=== PATIENT | male | born 1945 | race Caucasian/White ===

== ENCOUNTER → 2016-12-07 | Outpatient (CLI) | payer OTHER, BC ==
[~2016-12-07] MED LIST: ASPEC325 PO; ASPI81TA28 PO; ATOR10TA88 PO; AZEL30SP NAE; CIPR-255 PO; CRD4 PO; FLUT0.15 NAE; FRRG PO; GLUC250C PO; LPT/40 PO; MULT-506 PO; NAPR1TAB9 PO; NEBI10TA2 PO; OMEG10007 PO; TART CHERRY JUICE PO; VGR50 PO
[2016-12-07 13:18] LABS: HEMATOCRIT 39.8 % (42-52); MEAN CELL VOLUME 97.3 fL (80-100); MEAN CORPUSCULAR HEMOGLOBIN 33.5 pg (25-34); MEAN CORPUSCULAR HGB CONC 34.4 g/dl (32-36); MEAN PLATELET VOLUME 10.8 fL (7.4-10.4); PLATELET COUNT 168 K/uL (130-400); RED BLOOD COUNT 4.09 M/uL (4.7-6.1); WHITE BLOOD COUNT 4.26 K/uL (4.8-10.8)
[2016-12-07 13:51] LABS: ALT/SGPT 54 U/L (12-78); AST/SGOT 22 U/L (15-37); BLOOD UREA NITROGEN 22 mg/dl (7-18); BUN/CREATININE RATIO 24.3 (10-20); CALCIUM 8.4 mg/dl (8.5-10.1); CARBON DIOXIDE 27 mmol/L (21-32); CHLORIDE 110 mmol/L (98-107); CHOLESTEROL 126 mg/dl (0-200); CREATININE 0.92 mg/dl (0.60-1.40); GLUCOSE 104 mg/dl (70-99); POTASSIUM 4.3 mmol/L (3.5-5.1); SODIUM 143 mmol/L (136-145)
[2016-12-07 13:54] LABS: ALB/GLOB RATIO 1.5 (0.9-2); ALKALINE PHOSPHATASE 67 U/L (45-117); CHOLESTEROL/HDL RATIO 2.6; HDL CHOLESTEROL 49 mg/dl; LDL CHOLESTEROL CALCULATED 57 mg/dl; TRIGLYCERIDES 99 mg/dl (0-150); VERY LOW DENSITY LIPOPROT CALC 20 mg/dl
== END | disposition home or self-care (01) ==
LOC: C.LABBC 10:23
PROVIDERS: ATTEND Family Medicine
DX: D64.9 Anemia, unspecified (principal); I10 Essential (primary) hypertension; Z11.59 Encounter for screening for other viral diseases; E78.5 Hyperlipidemia, unspecified

== ENCOUNTER → 2016-12-31 | Outpatient (CLI) | payer OTHER, BC ==
[~2016-12-31] MED LIST changes: +ATOR10TA82 PO; -ATOR10TA88 PO
== END | disposition home or self-care (01) ==
LOC: C.LABBC 11:05
PROVIDERS: ATTEND Urology
DX: R31.0 Gross hematuria (principal)

== ENCOUNTER 2017-01-01 14:12 | Emergency (ER) | payer OTHER, BC ==
[~2017-01-01] VITALS: Ht 188 cm; Wt 101.7 kg
[~2017-01-01 14:12] MED LIST changes: -ASPI81TA28 PO; -CIPR-255 PO; -LPT/40 PO; -VGR50 PO
[2017-01-01 14:17] VITALS: TEMP 36.6; Ht 188 cm; Wt 101.7 kg
[2017-01-01] MEDS ORDERED: LPT/40 PO (14:56)
[2017-01-01] MEDS ORDERED: ASPI81TA28 PO (14:56)
--- NOTE | 2017-01-01 14:56 | EMERGENCY ROOM VISIT NOTE ---
History Report prepared by Divya: Alen Pack Under the Supervision of: Dr. Halle Burrell D.O. First contact with patient: 14:26 Chief Complaint: URINARY SYMPTOMS Stated Complaint: REFERRED BY UROLOGIST, URINARY SYMPTOMS Nursing Triage Summary: Pt states long history of prostate problems, transuretheral resection of prostate 20 years ago. 3 days ago began having "prostate pain", 3/10 during day, 7/10 at night. Hematuria, blood clots in urine increasing over the last month. Increased incontinence. Feels like he's emptying his bladder, but continues to dribble a little after. History of Present Illness The patient is a 71 year old male who presents to the Emergency Room, with referral from urologist, for worsening urinary symptoms that started CAR GREASER. These symptoms include worsening gross hematuria, worsening incontinence, "dribbling" after urination, and pain behind the scrotum that the patient rates as a 3/10 during the day and a 7/10 at night. This pain is worse with lying down. It intermittently radiates to the lower back. It worsened 3 days ago after passing a blood clot 3 quarters of an inch in length. Patient mentions that he had a negative urinalysis performed 3 days ago. The patient has a long history of prostate problems that includes recurrent prostatitis, frequent gross hematuria , a transurethral resection of the prostate 20 years ago. He adds that his frequent hematuria is often related to sexual activity. The patient has a scheduled cystoscopy on January [address] Morales (Urology). The patient takes Aleve and Aspirin daily as prescribed. He denies fevers, chills, nausea, vomiting, diarrhea, testicular pain or swelling, or any additional associated symptoms. Patient denies a history of kidney infections. Source of History: patient Onset: CAR GREASER Position: other (Urinary System ) Timing: worsening Modifying Factors (Worsening): other (Lying down) Associated Symptoms: No chills, No diarrhea, No fevers, No nausea, No vomiting Note: Symptoms include hematuria, dribbling after urination, incontinence, and pain. Review of Systems Pt denies headache, change in vision, fevers, chest pain, shortness of breath, nausea, vomiting, diarrhea, pain with urination, and melena. Past Medical & Surgical Medical Problems: (1) Right Knee djd Surgical Problems: (1) H/O transurethral resection of prostate Family History No pertinent family history Social History Smoking Status: Former Smoker Alcohol Use: occasionally Drug Use: none Marital Status: Housing Status: lives with significant other Current/Historical Medications Scheduled Aspirin (Aspirin Ec), 81 MG PO HS Atorvastatin (Lipitor), 40 MG PO QAM Azelastine Hcl-Fluticasone Pro (Dymista), 2 SPRY CARLOS BID Ciprofloxacin Hcl (Cipro), 500 MG PO BID Doxazosin Mesylate (Doxazosin Mesylate), 4 MG PO QPM Fish Oil ([place]-3), 2 CAP PO QAM Fluticasone Propionate (Nasal) (Flonase Allergy Relief), 1 SPRAYS CARLOS BID Multivitamin (Multivitamin), 1 TAB PO QAM Nebivolol Hcl (Bystolic), 5 MG PO QPM Scheduled PRN Naproxen (Aleve), 220 MG PO Q12 PRN for Pain Allergies Coded Allergies: Cetirizine (Verified Allergy, Unknown, AFFECTS PROSTATE, 01/01/17) Physical Exam Vital Signs Date Time Temp Pulse Resp B/P Pulse Ox O2 Delivery O2 Flow Rate FiO2 01/01/17 18:21 66 17 128/85 97 01/01/17 16:28 66 16 122/75 95 01/01/17 14:17 36.6 89 17 128/82 97 Room Air Physical Exam GENERAL: alert, well appearing, well nourished, no distress, non-toxic EYE EXAM: normal conjunctiva, PERRL and EOM's grossly intact OROPHARYNX: no exudate, no erythema, lips, buccal mucosa, and tongue normal and mucous membranes are moist NECK: supple, no nuchal rigidity, no adenopathy, non-tender LUNGS: Clear to auscultation. Normal chest wall mechanics HEART: no murmurs, S1 normal and S2 normal ABDOMEN: abdomen soft, non-tender, normo-active bowel sounds, no masses, no rebound or guarding. : Normal external circumcised male genitalia. Bilateral, nontender, descended testicles. No scrotal edema or tenderness. No penile discharge. BACK: Back is symmetrical on inspection and there is no deformity, no midline tenderness, no CVA tenderness. SKIN: no rashes and no bruising UPPER EXTREMITIES: upper extremities are grossly normal. LOWER EXTREMITIES: No pitting edema. NEURO EXAM: Normal sensorium, no gross weakness. Medical Decision & Procedures ER Provider Diagnostic Interpretation: CT results have been interpreted by the radiologist and reviewed by me. ABDOMEN AND PELVIS CT WITH IV CONTRAST CT DOSE: 572.70 mGy.cm HISTORY: pelvic pain/? prostatitis TECHNIQUE: Multiaxial CT images of the abdomen and pelvis were performed following the use of intravenous contrast. COMPARISON STUDY: None. FINDINGS: Minimal basilar platelike atelectasis. Liver spleen and pancreas are unremarkable. Kidneys negative for hydronephrosis. Bowel pattern is nonobstructive. There is atherosclerotic change and ectasia of the abdominal aorta. Prostate is midline. There is no significant periprosthetic infiltrative change. There is no evidence for abscess collection or obstruction. IMPRESSION: No acute process. Electronically signed by: Nitesh Quiroga M.D. 01/01/2017 5:08 PM Dictated Date/Time: 01/01/2017 5:02 PM Laboratory Results 01/01/17 15:00 Red Blood Count 3.96, Mean Corpuscular Volume 96.2, Mean Corpuscular Hemoglobin 33.8, Mean Corpuscular Hemoglobin Concent 35.2, Mean Platelet Volume 10.1, Neutrophils (%) (Auto) 57.7, Lymphocytes (%) (Auto) 30.0, Monocytes (%) (Auto) 7.3, Eosinophils (%) (Auto) 3.6, Basophils (%) (Auto) 0.7, Neutrophils # (Auto) 2.54, Lymphocytes # (Auto) 1.32, Monocytes # (Auto) 0.32, Eosinophils # (Auto) 0.16, Basophils # (Auto) 0.03 01/01/17 15:00 Test 01/01/17 15:00 01/01/17 15:18 White Blood Count 4.40 K/uL (4.8-10.8) Red Blood Count 3.96 M/uL (4.7-6.1) Hemoglobin 13.4 g/dL (14.0-18.0) Hematocrit 38.1 % (42-52) Mean Corpuscular Volume 96.2 fL (80-100) Mean Corpuscular Hemoglobin 33.8 pg (25-34) Mean Corpuscular Hemoglobin Concent 35.2 g/dl (32-36) Platelet Count 168 K/uL (130-400) Mean Platelet Volume 10.1 fL (7.4-10.4) Neutrophils (%) (Auto) 57.7 % Lymphocytes (%) (Auto) 30.0 % Monocytes (%) (Auto) 7.3 % Eosinophils (%) (Auto) 3.6 % Basophils (%) (Auto) 0.7 % Neutrophils # (Auto) 2.54 K/uL (1.4-6.5) Lymphocytes # (Auto) 1.32 K/uL (1.2-3.4) Monocytes # (Auto) 0.32 K/uL (0.11-0.59) Eosinophils # (Auto) 0.16 K/uL (0-0.5) Basophils # (Auto) 0.03 K/uL (0-0.2) RDW Standard Deviation 48.0 fL (36.4-46.3) RDW Coefficient of Variation 13.8 % (11.5-14.5) Immature Granulocyte % (Auto) 0.7 % Immature Granulocyte # (Auto) 0.03 K/uL (0.00-0.02) Anion Gap 8.0 mmol/L (3-11) Est Creatinine Clear Calc Drug Dose 92.8 ml/min Estimated GFR () 95.4 Estimated GFR (Non- 82.3 BUN/Creatinine Ratio 27.4 (10-20) Calcium Level 8.7 mg/dl (8.5-10.1) Urine Color YELLOW Urine Appearance CLEAR (CLEAR) Urine pH 6.0 (4.5-7.5) Urine Specific Lamar 1.016 (1.000-1.030) Urine Protein NEG (NEG) Urine Glucose (UA) NEG (NEG) Urine Ketones NEG (NEG) Urine Occult Blood NEG (NEG) Urine Nitrite NEG (NEG) Urine Bilirubin NEG (NEG) Urine Urobilinogen NEG (NEG) Urine Leukocyte Esterase NEG (NEG) Date/Time Source Procedure Growth Status 01/01/17 15:18 Urine , Clean Catch Urine Culture - Final NO GROWTH - LESS THAN 1,000 COLONIES/ML Complete Laboratory results per my review. Medications Administered Medications (Trade) Dose Ordered Sig/Jd Route Start Time Stop Time Status Last Admin Dose Admin Ciprofloxacin (Cipro Tab) 500 mg NOW STAT PO 01/01/17 17:30 01/01/17 17:32 DC 01/01/17 18:14 500 MG ED Course 1430: The patient was evaluated in room B7. A complete history and physical exam was performed. 1712: I updated the patient on the results thus far. We discussed the current treatment plan. He is agreeable at this time. 1725: I discussed the patient's case with Dr. Mckeon (Urology). He recommends the patient follow up as an outpatient. 1730: Ordered Ciprofloxacin 500 mg PO. 1750: Pt updated on conversation with urology. 1743: Upon reevaluation, the patient is feeling better. I discussed the findings and the treatment plan with the patient and his . They verbalized agreement and understanding. He was discharged home. Medical Decision Differential diagnosis include but are not limited to: UTI, kidney stone, acute renal failure, trauma, prostatitis. Pt well appearing here. No difficulty urinating and no hematuria. Pain well controlled. VS stable. CT and labs reassuring. Discussed with urology. Pt covered with antibiotics for probable prostatitis given hx. No other med changes. Doubt UTI/pyelo, no evidence of stone, abscess, doubt additional Gi pathology. Questions answered at bedside. Pt agreeable with plan, discussed sx to watch/return for. Consults Time Called: 171 Consulting Physician: Dr. Mckeon (Urology) Returned Call: [phone] I discussed the patient's case with Dr. Mckeon (Urology). He recommends the patient follow up in the outpatient office. Impression Primary Impression: Prostatitis Scribe Attestation The scribe's documentation has been prepared under my direction and personally reviewed by me in its entirety. I confirm that the note above accurately reflects all work, treatment, procedures, and medical decision making performed by me. Departure Information Dispostion Home / Self-Care Prescriptions Ciprofloxacin Hcl (CIPRO) 500 Mg Tab 500 MG PO BID for 28 Days, #56 TAB Prov: Halle Burrell, 01/01/17 Referrals Gilmer Joel D.O.Int.Med. (PCP) Forms HOME CARE DOCUMENTATION FORM, IMPORTANT VISIT INFORMATION Patient Instructions My [facility] Additional Instructions Please take the antibiotics as prescribed. Please continue your regular medications. Please eat and drink normally. Continue to monitor for any further blood or clots in your urine. If you have any increased pain, develop fevers, vomiting, back pain, are unable to urinate, notice a change in your stools, or you have any other new or concerning symptoms, please return to the emergency room. Problem Qualifiers Primary Impression: Prostatitis Prostatitis type: acute Qualified Codes: N41.0 - Acute prostatitis
[2017-01-01 15:16] LABS: BASO % 0.7 %; BASO ABS # 0.03 K/uL (0-0.2); COMPLETE YES; EOS % 3.6 %; HEMATOCRIT 38.1 % (42-52); IG% 0.7 %; LYMPH ABS # 1.32 K/uL (1.2-3.4); MEAN CELL VOLUME 96.2 fL (80-100); MEAN CORPUSCULAR HEMOGLOBIN 33.8 pg (25-34); MEAN CORPUSCULAR HGB CONC 35.2 g/dl (32-36); MEAN PLATELET VOLUME 10.1 fL (7.4-10.4); MONO % 7.3 %; NEUT % 57.7 %; PLATELET COUNT 168 K/uL (130-400); RED BLOOD COUNT 3.96 M/uL (4.7-6.1)
[2017-01-01 15:29] LABS: URINE APPEARANCE CLEAR (CLEAR); URINE BILIRUBIN NEG (NEG); URINE COLOR YELLOW; URINE NITRITE NEG (NEG); URINE SPECIFIC GRAVITY 1.016 (1.000-1.030); UROBILINOGEN NEG (NEG); ZZUR CULT IF INDIC CLEAN CATCH NO
[2017-01-01] MEDS ORDERED: OPTIRAY 320 IV PRN (15:30)
[2017-01-01 15:31] LABS: MANUAL MICROSCOPIC REQUIRED? NO; REVIEW REQ? NO
[2017-01-01 15:47] LABS: BUN/CREATININE RATIO 27.4 (10-20); CALCIUM 8.7 mg/dl (8.5-10.1); CREATININE 0.93 mg/dl (0.60-1.40); POTASSIUM 4.2 mmol/L (3.5-5.1)
--- NOTE | 2017-01-01 17:11 | DIAGNOSTIC IMAGING REPORT ---
ABDOMEN AND PELVIS CT WITH IV CONTRAST CT DOSE: 572.70 mGy.cm HISTORY: pelvic pain/? prostatitis TECHNIQUE: Multiaxial CT images of the abdomen and pelvis were performed following the use of intravenous contrast. COMPARISON STUDY: None. FINDINGS: Minimal basilar platelike atelectasis. Liver spleen and pancreas are unremarkable. Kidneys negative for hydronephrosis. Bowel pattern is nonobstructive. There is atherosclerotic change and ectasia of the abdominal aorta. Prostate is midline. There is no significant periprosthetic infiltrative change. There is no evidence for abscess collection or obstruction. IMPRESSION: No acute process. Electronically signed by: Nitesh Quiroga M.D. 01/01/2017 5:08 PM Dictated Date/Time: 01/01/2017 5:02 PM
[2017-01-01] MEDS ORDERED: CIPROFLOXACIN 500 MG TAB PO STA (17:30)
[2017-01-01] MEDS ORDERED: CIPR-255 PO (17:59)
[2017-01-01 18:21] VITALS: BP 128/85; PULSE 66; O2SAT 97
[2017-02-17] MEDS ORDERED: NAPR1TAB9 PO (12:05)
[2017-02-17] MEDS ORDERED: VGR50 PO (12:05)
[2017-03-02] MEDS ORDERED: CIPR-255 PO (10:26)
== END 2017-01-01 18:23 | disposition home or self-care (01) ==
LOC: C.EDB 14:13
DX: N41.9 Inflammatory disease of prostate, unspecified (principal); Z98.890 Other specified postprocedural states; Z87.891 Personal history of nicotine dependence; Z79.82 Long term (current) use of aspirin; Z79.899 Other long term (current) drug therapy; Z88.8 Allergy status to other drugs, medicaments and biological substances

== ENCOUNTER 2017-03-02 08:49 | Day surgery (SDC) | payer OTHER, BC ==
[2017-02-17 12:06] VITALS: BMI 28.0
--- NOTE | 2017-02-17 12:45 | PAT Medication Instructions ---
Service Date Feb 17, 2017. Current Home Medication List Aspirin (Aspirin Ec), 81 MG PO HS Atorvastatin (Lipitor), 40 MG PO QAM Azelastine Hcl-Fluticasone Pro (Dymista), 2 SPRY CARLOS BID Doxazosin Mesylate (Doxazosin Mesylate), 4 MG PO QPM Fish Oil ([place]-3), 2 CAP PO QAM Fluticasone Propionate (Nasal) (Flonase Allergy Relief), 1 SPRAYS CARLOS BID Multivitamin (Multivitamin), 1 TAB PO QAM Naproxen (Aleve), 440 MG PO PRN Nebivolol Hcl (Bystolic), 5 MG PO QPM Sildenafil Citrate (Viagra), 50 MG PO PRN Medication Instructions For Your Scheduled Surgery - Check with surgeon for instructions: Aspirin (Aspirin Ec), 81 MG PO HS Naproxen (Aleve), 440 MG PO PRN - Hold the following medications starting 02/18/17 prior to surgery: Fish Oil ([place]-3), 2 CAP PO QAM - Hold the following medications the morning of surgery: Sildenafil Citrate (Viagra), 50 MG PO PRN Multivitamin (Multivitamin), 1 TAB PO QAM - Take the following medications the morning of surgery with a sip of water: Fluticasone Propionate (Nasal) (Flonase Allergy Relief), 1 SPRAYS CARLOS BID Azelastine Hcl-Fluticasone Pro (Dymista), 2 SPRY CARLOS BID Atorvastatin (Lipitor), 40 MG PO QAM - Take the following medications as scheduled the night before surgery: Sildenafil Citrate (Viagra), 50 MG PO PRN Nebivolol Hcl (Bystolic), 5 MG PO QPM Fluticasone Propionate (Nasal) (Flonase Allergy Relief), 1 SPRAYS CARLOS BID Doxazosin Mesylate (Doxazosin Mesylate), 4 MG PO QPM Azelastine Hcl-Fluticasone Pro (Dymista), 2 SPRY CARLOS BID If you have any questions please call us at [phone] or [phone] or [phone]
--- NOTE | 2017-02-17 13:08 | DIAGNOSTIC IMAGING REPORT ---
CHEST 2 VIEWS ROUTINE CLINICAL HISTORY: Preoperative chest COMPARISON STUDY: 01/14/2016 FINDINGS: The cardiac and mediastinal contours are normal. There is no evidence of focal pulmonary consolidation. There is no evidence of failure. No pleural effusions are visualized.[ There is minimal linear atelectasis/scarring at the lung bases. IMPRESSION: No active disease in the chest. Electronically signed by: Boni Burciaga M.D. 02/17/2017 1:07 PM Dictated Date/Time: 02/17/2017 1:07 PM
[2017-02-17 13:27] LABS: BASO % 0.7 %; BASO ABS # 0.03 K/uL (0-0.2); COMPLETE YES; EOS % 3.5 %; IG% 0.9 %; LYMPH % 28.2 %; LYMPH ABS # 1.22 K/uL (1.2-3.4); MEAN CELL VOLUME 96.4 fL (80-100); MEAN CORPUSCULAR HEMOGLOBIN 32.8 pg (25-34); MEAN CORPUSCULAR HGB CONC 34.1 g/dl (32-36); MEAN PLATELET VOLUME 10.8 fL (7.4-10.4); MONO % 7.2 %; NEUT % 59.5 %; PLATELET COUNT 167 K/uL (130-400); RED BLOOD COUNT 3.84 M/uL (4.7-6.1); WHITE BLOOD COUNT 4.33 K/uL (4.8-10.8)
[2017-02-17 13:28] LABS: URINE APPEARANCE CLEAR (CLEAR); URINE BILIRUBIN NEG (NEG); URINE COLOR YELLOW; URINE NITRITE NEG (NEG); URINE SPECIFIC GRAVITY 1.012 (1.000-1.030); UROBILINOGEN NEG (NEG)
[2017-02-17 13:32] LABS: MANUAL MICROSCOPIC REQUIRED? NO; REVIEW REQ? NO
[2017-02-17 14:34] LABS: BUN/CREATININE RATIO 23.9 (10-20); CALCIUM 8.7 mg/dl (8.5-10.1); CREATININE 0.8 mg/dl (0.60-1.40); POTASSIUM 4.4 mmol/L (3.5-5.1)
[~2017-03-02] VITALS: Ht 188 cm; Wt 99.5 kg
[~2017-03-02 08:49] MED LIST changes: -ASPEC325 PO; +ASPI81TA28 PO; -ATOR10TA82 PO; +ATROPINE SULFATE 0.1 MG/ML 5ML SYR IV PRN; +CIPROFLOXACIN / D5W 400 MG IV SCH; +EpHEDrine SULFATE INJ 50 MG/ML AMP IV PRN; +FENTANYL CITRATE INJ 50 MCG/1 ML 2 ML VIAL IV PRN; +FENTANYL CITRATE INJ 50 MCG/1 ML 2 ML VIAL ONE; -FRRG PO; -GLUC250C PO; +HYDROmorphone INJ 1 MG/ML SYR IV PRN; +LACTATED RINGER'S 1000ML 1,000 ML IV SCH; +LPT/40 PO; +ONDANSETRON INJ 2 MG/ML 2 ML VIAL IV PRN; -TART CHERRY JUICE PO; +VGR50 PO
[2017-03-02 09:07] VITALS: BP 119/74; PULSE 69; TEMP 36.8; O2SAT 95; Ht 188 cm; Wt 99.5 kg
--- NOTE | 2017-03-02 09:11 | History & Physical Bridge Note ---
H&P Re-Evaluation Bridge Note: I have examined the patient, reviewed the History & Physical and in the interval since the performance of the History & Physical I have noted the following changes of clinical significance: No changes noted
[2017-03-02] MEDS ORDERED: ONDANSETRON INJ 2 MG/ML 2 ML VIAL ONE (09:56)
[2017-03-02] MEDS ORDERED: DEXAMETHASONE SOD INJ 4 MG/ML VIAL ONE (09:56)
[2017-03-02] MEDS ORDERED: PROPOFOL IV EMULSION 10 MG/ML 20 ML VIAL IV ONE (09:56)
[2017-03-02] MEDS ORDERED: LIDOCAINE HCL 2% 2 ML VIAL (20MG/ML) ONE (09:56)
[2017-03-02] MEDS ORDERED: EpHEDrine SULFATE 50MG/5ML SYR ONE (09:58)
[2017-03-02] MEDS ORDERED: SODIUM CHLORIDE 0.9% 1000ML 1,000 ML IV SCH (10:24)
--- NOTE | 2017-03-02 10:24 | [facility] Post Operative Brief Note ---
Immediate Operative Summary Operative Date Mar 02, 2017. Pre-Operative Diagnosis BENIGN PROSTATE HYPERTROPHY Post-Operative Diagnosis SAME Procedure(s) Performed Transurethral Resection Prostate Surgeon Dr. Nishant Morales [employer] Cook Surgeon(s) none Estimated Blood Loss 0 ml Findings Lateral lobe regrowth of the prostate. Resected and opened nicely. Widely patent prostatic urethra at the conclusion of the case. Specimens none per surgeon Drains 22F ruiz Anesthesia Gen Complication(s) None Disposition Recovery Room / PACU (stable)
[2017-03-02] MEDS ORDERED: CIPR-255 PO (10:26)
--- NOTE | 2017-03-02 10:27 | Discharge Instructions ---
Discharge Instructions Date of Service Mar 02, 2017. Admission Reason for Admission: Benign Prostatic Hypertrophy Discharge Discharge Diagnosis / Problem: BPH Discharge Goals Goal(s): Decrease discomfort, Improve function, Increase independence, Improve disease control, Prevent Disease Progression Activity Recommendations Activity Limitations: resume your previous activity Lifting Limitations: none Exercise/Sports Limitations: none May Resume Sexual Activity: when tolerated Shower/Bathe: no limitations Driving or Machine Use: resume 1 day after discharge . Instructions / Follow-Up Instructions / Follow-Up Please come to Dr. Morales's office tomorrow morning to have your catheter removed Discharge Diet Recommended Diet: Regular Diet Procedures Procedures Performed: Transurethral Resection Prostate Pending Studies Studies pending at discharge: no Laboratory Results Lipid Panel Test 12/07/16 10:26 Range/Units Triglycerides Level 99 0-150 mg/dl Cholesterol Level 126 0-200 mg/dl HDL Cholesterol 49 mg/dl Cholesterol/HDL Ratio 2.6 LDL Cholesterol, Calculated 57 mg/dl Medical Emergencies . Who to Call and When: Medical Emergencies: If at any time you feel your situation is an emergency, please call 911 immediately. . Non-Emergent Contact Non-Emergency issues call your: Urologist Call Non-Emergent contact if: you have a fever, temperature is above 101.5, your pain is not controlled, your pain is worsening . . "Provider Documentation" section prepared by Fede Fox. . VTE Core Measure Inpt VTE Proph given/why not?: Treatment not indicated
[2017-03-02] MEDS ORDERED: ACETAMINOPHEN 325 MG TAB PO PRN (10:30)
[2017-03-02] MEDS ORDERED: HYDROCODONE/ACETAMOPHEN 5/325MG TAB PO PRN ×2 (10:30)
--- NOTE | 2017-03-02 11:02 | OPERATIVE REPORT ---
DATE OF OPERATION: 03/02/2017 PREOPERATIVE DIAGNOSIS: Benign prostatic hypertrophy. POSTOPERATIVE DIAGNOSIS: Benign prostatic hypertrophy. PROCEDURE PERFORMED: Transurethral resection of prostate. ANESTHESIA: General. ESTIMATED BLOOD LOSS: 0. URINE OUTPUT: Not recorded. SPECIMENS: There were no specimens. DRAINS: A 22-Samoan Carreno catheter. DESCRIPTION OF THE PROCEDURE: Jose Cordoba was identified in the preoperative holding area. Appropriate informed consents were reviewed and completed and the patient was transported to the operating suite. Upon arrival, he received appropriate preoperative antibiotics in the form of ciprofloxacin. Adequate general anesthesia was achieved, the patient was placed in dorsal lithotomy position, where he was sterilely prepped and draped in standard fashion. I began the case by passing a 24-Samoan resectoscope with 30 degree lens and visual obturator. Inspection revealed no evidence of stricture disease. Prostate had lateral lobe regrowth and notable obstruction. Full inspection of the bladder was carried out, noting a moderately trabeculated bladder with ureteral orifices in orthotopic position and no evidence of bladder tumors. Of note, the patient had a TURP approximately 20+ years ago and has had a very good result; however, he has had increasing problems recently and has a notable regrowth of the prostate. After this full inspection, I passed a button electrode and vaporized the lateral lobes beginning with the left ultimately followed by the right. This opened the prostatic urethra extremely well and there was excellent hemostasis throughout the resection. To conclude the case, I left the bladder full and I withdrew the scope. I then placed a 22-Samoan catheter without difficulty. The patient was extubated and taken to the PACU in stable condition. I attest to the content of the Intraoperative Record and any orders documented therein. Any exception s are noted below.
--- NOTE | 2017-03-02 11:03 | Anesthesiology Progress Note ---
Anesthesia Post Op Note Date & Time Mar 02, 2017 at 11:02 Vital Signs Pain Intensity: 0 Vital Signs Past 12 Hours Date Time Temp Pulse Resp B/P (MAP) Pulse Ox O2 Delivery O2 Flow Rate FiO2 03/02/17 10:46 106/65 03/02/17 10:45 77 17 96 03/02/17 10:45 68 17 03/02/17 10:41 111/69 03/02/17 10:40 69 25 03/02/17 10:40 68 25 98 03/02/17 10:36 110/59 03/02/17 10:35 68 15 03/02/17 10:35 68 15 98 03/02/17 10:31 104/65 03/02/17 10:30 75 14 03/02/17 10:30 73 14 03/02/17 10:27 108/64 03/02/17 10:25 36.2 77 18 108/64 98 Mask 10 03/02/17 09:07 36.8 69 18 119/74 (89) 95 Room Air Notes Mental Status: alert / awake / arousable, participated in evaluation Pt Amnestic to Procedure: Yes Nausea / Vomiting: adequately controlled Pain: adequately controlled Airway Patency, RR, SpO2: stable & adequate BP & HR: stable & adequate Hydration State: stable & adequate Anesthetic Complications: no major complications apparent
[2017-03-02 11:10] VITALS: BP 116/66; PULSE 72; TEMP 36.6; O2SAT 93
[2017-03-02 11:40] VITALS: BP 109/68; PULSE 69; TEMP 36.6; O2SAT 95
[2017-03-02 12:10] VITALS: BP 116/74; PULSE 71; TEMP 36.6; O2SAT 95
== END 2017-03-02 12:19 | disposition home or self-care (01) ==
LOC: C.ACU 08:49
PROVIDERS: ATTEND Urology
DX: N40.0 Benign prostatic hyperplasia without lower urinary tract symptoms (principal); I10 Essential (primary) hypertension; E78.5 Hyperlipidemia, unspecified; I25.10 Atherosclerotic heart disease of native coronary artery without angina pectoris; G47.33 Obstructive sleep apnea (adult) (pediatric); Z96.653 Presence of artificial knee joint, bilateral; Z98.41 Cataract extraction status, right eye; Z98.42 Cataract extraction status, left eye; Z98.890 Other specified postprocedural states; M19.90 Unspecified osteoarthritis, unspecified site; Z85.828 Personal history of other malignant neoplasm of skin; Z68.28 Body mass index [BMI] 28.0-28.9, adult

== ENCOUNTER → 2017-10-15 | Outpatient (CLI) | payer OTHER, BC ==
[~2017-10-15] MED LIST changes: -ATROPINE SULFATE 0.1 MG/ML 5ML SYR IV PRN; +CIPR-255 PO; -CIPROFLOXACIN / D5W 400 MG IV SCH; -EpHEDrine SULFATE INJ 50 MG/ML AMP IV PRN; -FENTANYL CITRATE INJ 50 MCG/1 ML 2 ML VIAL IV PRN; -FENTANYL CITRATE INJ 50 MCG/1 ML 2 ML VIAL ONE; -HYDROmorphone INJ 1 MG/ML SYR IV PRN; -LACTATED RINGER'S 1000ML 1,000 ML IV SCH; -ONDANSETRON INJ 2 MG/ML 2 ML VIAL IV PRN; -VGR50 PO
[2017-10-15 14:22] LABS: ALBUMIN 4.1 gm/dl (3.4-5.0); ALKALINE PHOSPHATASE 71 U/L (45-117); ALT/SGPT 46 U/L (12-78); AST/SGOT 20 U/L (15-37); BLOOD UREA NITROGEN 24 mg/dl (7-18); CALCIUM 8.5 mg/dl (8.5-10.1); CARBON DIOXIDE 28 mmol/L (21-32); CHOLESTEROL 122 mg/dl (0-200); CREATININE 0.92 mg/dl (0.60-1.40); GLUCOSE 104 mg/dl (70-99); POTASSIUM 4.2 mmol/L (3.5-5.1); SODIUM 139 mmol/L (136-145); TOTAL PROTEIN 7.3 gm/dl (6.4-8.2)
[2017-10-15 14:24] LABS: LDL CHOLESTEROL CALCULATED 57 mg/dl
== END | disposition home or self-care (01) ==
LOC: C.LABBC 09:33
PROVIDERS: ATTEND Nurse Practitioner Adult Health
DX: E78.5 Hyperlipidemia, unspecified (principal); I10 Essential (primary) hypertension

== ENCOUNTER → 2017-10-19 | Outpatient (CLI) | payer OTHER, BC ==
[2017-10-20 07:03] LABS: HEMOGLOBIN A1C 5.3 % (4.5-5.6)
== END | disposition home or self-care (01) ==
LOC: C.LABBC 14:08
PROVIDERS: ATTEND Nurse Practitioner Adult Health
DX: R73.01 Impaired fasting glucose (principal)

== ENCOUNTER → 2018-04-19 | Outpatient (CLI) | payer OTHER, BC ==
[2018-04-19 16:50] LABS: BASO % 0.3 %; BASO ABS # 0.01 K/uL (0-0.2); BLOOD UREA NITROGEN 23 mg/dl (7-18); CALCIUM 8.7 mg/dl (8.5-10.1); CARBON DIOXIDE 28 mmol/L (21-32); CREATININE 0.93 mg/dl (0.60-1.40); EOS % 4.5 %; EOS ABS # 0.17 K/uL (0-0.5); GLUCOSE 90 mg/dl (70-99); HEMATOCRIT 38.4 % (42-52); HEMOGLOBIN 12.8 g/dL (14.0-18.0); IG# 0.02 K/uL (0.00-0.02); LYMPH % 33.3 %; LYMPH ABS # 1.25 K/uL (1.2-3.4); MEAN CELL VOLUME 98.2 fL (80-100); MEAN CORPUSCULAR HEMOGLOBIN 32.7 pg (25-34); MEAN CORPUSCULAR HGB CONC 33.3 g/dl (32-36); MEAN PLATELET VOLUME 10.8 fL (7.4-10.4); MONO % 8.5 %; MONO ABS # 0.32 K/uL (0.11-0.59); NEUT % 52.9 %; NEUT ABS # 1.98 K/uL (1.4-6.5); PLATELET COUNT 148 K/uL (130-400); POTASSIUM 4.5 mmol/L (3.5-5.1); RED CELL DISTRIBUTION WIDTH CV 14.7 % (11.5-14.5); RED CELL DISTRIBUTION WIDTH SD 51.7 fL (36.4-46.3); SODIUM 142 mmol/L (136-145); WHITE BLOOD COUNT 3.75 K/uL (4.8-10.8)
== END | disposition home or self-care (01) ==
LOC: C.LABBC 13:31
PROVIDERS: ATTEND Nurse Practitioner Adult Health
DX: I10 Essential (primary) hypertension (principal); D64.9 Anemia, unspecified

== ENCOUNTER 2022-11-27 05:15 | Observation (INO) ==
--- NOTE | 2022-11-06 10:50 | PAT Medication Instructions ---
Medication Instructions Date of Service November 06, 2022 Home Medications Medication Instructions Recorded CPAP Machine #1 ea 06/21/19 triamcinolone acetonide 0.1 % 1 applic topical BID PRN 08/07/20 topical cream .irritation #1 g tadalafil 20 mg tablet 23 mg PO DAILY PRN sexual activity 10/17/20 #10 tabs doxazosin 4 mg tablet See Rx Instructions .Route 03/12/22 .COMPLEX #90 tabs azelastine 137 mcg (0.1 %) nasal 2 spray intranasal BID #90 mL 06/02/22 spray aerosol fluticasone propionate 50 2 spray intranasal DAILY PRN 07/24/22 mcg/actuation nasal allergy symptoms #18.2 grams spray,suspension multivitamin (Daily Multi-Vitamin tablet) 1 tab PO QAM CPAP Machine triamcinolone acetonide 0.1 % topical cream 1 applic topical BID PRN tadalafil 20 mg tablet 23 mg PO DAILY PRN calcium-magnesium 1 dose PO QAM omega-3 acid ethyl esters 1 gram capsule 1 cap PO QAM doxazosin 4 mg tablet See Rx Instructions .Route .COMPLEX azelastine 137 mcg (0.1 %) nasal spray aerosol 2 spray intranasal BID fluticasone propionate 50 mcg/actuation nasal spray,suspension 2 spray intranasal DAILY PRN ezetimibe 10 mg tablet (Zetia) 10 mg PO QAM nebivolol 5 mg tablet 5 mg PO QPM sildenafil 1 dose PO UD PRN Continue as directed doxazosin 4 mg tablet See Rx Instructions .Route .COMPLEX fluticasone propionate 50 mcg/actuation nasal spray,suspension 2 spray intranasal DAILY PRN(if needed) STOP taking 2 weeks before surgery (or as soon as possible if surgery is within 2 weeks) omega-3 acid ethyl esters 1 gram capsule 1 cap PO QAM STOP taking 24 hours before surgery triamcinolone acetonide 0.1 % topical cream 1 applic topical BID PRN DO NOT take the morning of surgery multivitamin (Daily Multi-Vitamin tablet) 1 tab PO QAM tadalafil 20 mg tablet 23 mg PO DAILY PRN calcium-magnesium 1 dose PO QAM sildenafil 1 dose PO UD PRN Take morning of surgery With a small sip of water, OTHERWISE NOTHING TO EAT OR DRINK AFTER MIDNIGHT: azelastine 137 mcg (0.1 %) nasal spray aerosol 2 spray intranasal BID ezetimibe 10 mg tablet (Zetia) 10 mg PO QAM Take evening before surgery azelastine 137 mcg (0.1 %) nasal spray aerosol 2 spray intranasal BID nebivolol 5 mg tablet 5 mg PO QPM Other Notes If you have any questions please call us at [phone] or [phone] or [phone] or [phone]
--- NOTE | 2022-11-09 13:47 | Anesthesiology Consultation ---
Date of Service November 09, 2022 Assessment & Plan (1) Encounter for pre-operative examination: - generalized rash including legs: pt states is Rx triamcinolone by PCP and on zeta now instead of statin due to suspected drug reaction rash. Surgeon's office made aware. - cardiology 08/25/22 [place]: "... Abdominal aortic aneurysm: 3.5 centimeters Earlier this year. Will re-evaluate in 2022. Essentially unchanged. Continue beta-blockade and blood pressure control. Coronary artery disease: Nonobstructive. History of 50 percent lad lesion. No current symptoms suggestive of coronary insufficiency or angina. Normal stress echo In 2018. This was on catheterization in 2008. Will continue aggressive secondary prevention with atorvastatin...Valvular heart disease: Mild mitral and aortic insufficiency. Seen on echocardiography in 2018. No murmur on exam. will repeat evaluation now that it has been 5 years...He recently stopped atorvastatin due to a possible drug eruption. He has a chronic rash and there is no clear etiology. He was advised to stop it for a few weeks. If this fails to improve his rash she can reinitiate. If this is believed to be causing a rash we can discuss an alternative agent..." - Case discussed with Dr. Mcfarlane who advised pt is acceptable to proceed with surgery at current status from his standpoint. - Outpatient joint assessment: Patient is currently scheduled for inpatient pathway. If re-evaluated pending system levels during current pandemic/surgeon requests outpatient pathway, patient is NOT acceptable candidate for outpatient joint program from anesthesia standpoint. Chart Review Chart Review: Acceptable Risk for Surgery and Patient seen in Pre Admission Testing Teaching & Discussion Pre-Anesthesia Teaching/Discussion Notes: Instructed NPO after midnight before surgery, except medications with 15 cc of water. Medication instructions provided according to the PAT guidelines. History Surgery Operation Date: 11/27/22 12:30 Proposed Procedures p Left Total Hip Arthroplasty Uncemented - Jose Servin MD Height/Weight Height: 6 ft 2 in Weight: 96.162 kg Allergies Allergy/AdvReac Type Severity Reaction Status Date / Time cetirizine Allergy Unknown AFFECTS Verified 11/06/22 10:06 PROSTATE Medications Home Medications Medication Instructions Recorded Confirmed Last Taken multivitamin (Daily Multi-Vitamin 1 tab PO QAM 05/01/19 11/06/22 Unknown tablet) CPAP Machine #1 ea 06/21/19 08/25/22 Unknown triamcinolone acetonide 0.1 % 1 applic topical BID PRN 08/07/20 11/06/22 Unknown topical cream .irritation #1 g tadalafil 20 mg tablet 23 mg PO DAILY PRN sexual activity 10/17/20 08/25/22 Unknown #10 tabs calcium-magnesium 1 dose PO QAM 07/09/21 11/06/22 Unknown omega-3 acid ethyl esters 1 gram 1 cap PO QAM 08/05/21 11/06/22 Unknown capsule doxazosin 4 mg tablet See Rx Instructions .Route 03/12/22 11/06/22 Unknown .COMPLEX #90 tabs azelastine 137 mcg (0.1 %) nasal 2 spray intranasal BID #90 mL 06/02/22 11/06/22 Unknown spray aerosol fluticasone propionate 50 2 spray intranasal DAILY PRN 07/24/22 11/06/22 Unknown mcg/actuation nasal allergy symptoms #18.2 grams spray,suspension ezetimibe 10 mg tablet (Zetia) 10 mg PO QAM 11/06/22 11/06/22 Unknown nebivolol 5 mg tablet 5 mg PO QPM 11/06/22 11/06/22 Unknown sildenafil 1 dose PO UD PRN Sexual Activity 11/06/22 11/06/22 Unknown Past Medical History Medical History (Updated 11/09/22 @ 15:32 by Julieta Wilks PA-C) Anemia Aneurysm of abdominal aorta 3.6 cm, followed by [facility] Balance problem Benign prostatic hyperplasia with urinary obstruction CAD (coronary artery disease) nonobstructive, follows with [facility] CHF (congestive heart failure) EF 55-60% on 11/05 echo H/O agent [place] exposure History of melanoma in situ 4, right forearm, left upper arm and cheeks bilat History of TMJ disorder denies h/o locking KOBU[place] (hard of hearing) BL BOLES Hypertension controlled, stable per pt MGUS (monoclonal gammopathy of unknown significance) Myelodysplastic syndrome Follows with [facility] Obstructive sleep apnea Using CPAP-compliant Patient denies h/o stroke, seizures, heart attack, DM, blood clots or blood transfusions. Exercise / Class Metabolic Activity II 4-5 Yardwork/Stairs/Walk up hill (denies chest discomfort or shortness of breath with 1 FOS) Past Family History Family History Mother No pertinent family history Father Cardiac disorder Myocardial infarction Brother Diabetes Family/Other Diabetes Aunt Diabetes Breast cancer Other No family history of adverse response to anesthesia Denies family history of Ovarian cancer Prostate cancer Colorectal cancer Hypertension Stroke Past Surgical History Surgical History (Updated 11/09/22 @ 15:27 by Julieta Wilks PA-C) H/O transurethral resection of prostate History of arthroplasty of left knee History of bilateral carpal tunnel release History of bilateral cataract extraction History of cardiac catheterization x2 in his 60s. no stents. History of Mohs micrographic surgery for skin cancer History of right knee joint replacement History of wisdom tooth extraction Past Anesthesia History No Hx of Anesthesia Complications and No Family Hx of Anesthesia Complications History of PONV No Hx of PONV and Hx of Motion Sickness Social History Smoking Status: Former smoker Do You Dip or Chew Tobacco: No Smoking End Date: years ago Hx Alcohol Use: Yes Alcohol type: beer, wine and hard liquor alcohol intake frequency: 3 or more drinks per day Alcohol Intake Frequency Comment: 3 drinks per day Hx Substance Use: No substance use type: does not use Review of Systems Patient denies chest pain, shortness of breath, dyspnea on exertion, reflux, fever, chills, cough, wheezing, or palpitations. Physical Exam Vital Signs Vitals BP 117/78 P 66 TEMP 98.5 SP02 95% on RA RESP 18 Physical Full cervical extension range of motion without pain TMD 3.5 finger breadths Mallampati Score 3 Dentition: several caps; denies chipped or loose teeth, crowns, implants or bridges Lungs: normal respiratory effort. Clear throughout to auscultation, no adventitious breath sounds Cardiac: regular rate and rhythm, no murmurs noted Carotid arteries: negative bruit bilat Lab Results Anesthesia Preop Results Results Anesthesia Widget: WBC 4.58 K/ul (4.8-10.8) L 11/09/22 Hgb 12.5 g/dl (14.0-18.0) L 11/09/22 Hct 35.9 % (42.0-52.0) L 11/09/22 Plt 173 K/uL (130-400) 11/09/22 Na 138 mmol/L (136-145) 11/09/22 K 4.0 mmol/L (3.5-5.1) 11/09/22 Cl 104 mmol/L (98-107) 11/09/22 CO2 30 mmol/L (21-32) 11/09/22 BUN 12 mg/dl (6-23) 11/09/22 Creat 0.75 mg/dl (0.6-1.4) 11/09/22 Glucose Level 98 mg/dl (70-99(Fasting)) 11/09/22 PT 10.8 Seconds (9.0-12.0) 11/09/22 PTT 25.1 Seconds (21.0-31.0) 11/09/22 INR 1.0 (0.9-1.1) 11/09/22 Blood Type B Positive 11/09/22 Antibody Screen NEGATIVE 11/09/22 Testing Electrocardiogram Date: 11/09/22 NSR, rate 63 bpm Chest X-Ray Date: 11/09/22 No lines and tubes are seen. The cardiomediastinal silhouette is normal. Atelectasis is seen in the right lower lung. No evidence of pleural effusion or pneumothorax. Degenerative changes are seen in the thoracic spine. IMPRESSION: No acute chest disease. Echocardiogram Date: 11/03/22 EF 55-60% Mild cLVH Mild aortic regurgitation Mild mitral regurgitation Mildly dilated ascending aorta COVID-19 Risk Screen Screening Information COVID-19 Screen Date: 11/09/22 Exposure 21 Days Family/Household +COVID Last 21 Days: No Exposure 10 Days Any COVID Exposure Last 10 Days: No Symptoms Last 10 Days Experienced COVID Sx Last 10 Days: No + COVID 0-90 Days COVID + in Last 0-90 Days: No
--- NOTE | 2022-11-21 08:43 | History and Physical Report ---
CHIEF COMPLAINT: Left hip pain. HISTORY OF PRESENT ILLNESS: A 77-year-old gentleman well known to me from previous right knee replac ement done in 2016. He has been a long-term patient of mine, I have been treating for various orthop edic issues. Over the past several years, he developed increased pain and discomfort in his left hip . He describes groin pain, thigh pain, pain radiating down to his knee. He has difficulty putting h is shoes and socks on. He limps more as the day goes on. It just gradually progressed. He takes med icine with minimal relief. He now like to have his hip fixed. PAST MEDICAL HISTORY: 1. Ischemic heart disease with a 50% blockage of his LAD. 2. Sleep apnea. 3. Anemia. 4. Low back pain/sciatica. 5. Mild obesity. 6. In situ melanoma. 7. BPH. PAST SURGICAL HISTORY: Includes: 1. Right knee replacement done on 02/25/2016. 2. Left knee replacement done in [place] on 12/11/2008. 3. Carpal tunnel release. ALLERGIES: None. CURRENT MEDICATIONS: Include: 1. Azelastine nasal spray. 2. Calcium. 3. CBD oil. 4. Doxazosin. 5. Zetia. 6. Fluticasone nasal spray. 7. Multivitamin. 8. Hersey 3. 9. Tadalafil. 10. Nebivolol. 11. Triamcinolone topically. SOCIAL HISTORY: A 77-year-old male. He is . 21 drinks per week. Does not smoke. FAMILY HISTORY: Noncontributory. REVIEW OF SYSTEMS: Negative for diabetes. No neurologic problem, vascular problem, or bleeding diso rder. He does have some degree of ischemic heart disease, treated medically. No DVT or PE. PHYSICAL EXAMINATION: GENERAL: Shows a pleasant middle-aged male. Looks to be in pretty good health. HEENT: Benign. NECK: Supple. No lymphadenopathy. LUNGS: Clear to auscultation. HEART: Has a regular rate and rhythm. ABDOMEN: Soft, nontender, nondistended. EXTREMITIES: Grossly neurovascularly intact except as follows. Examination of the left hip revealed patient walks with a slightly antalgic gait. Leg lengths appear pretty equal. He has got a very stiff hip with internal rotation and neutral at best. Recreates pa in. Negative straight leg raise. No significant knee effusion. X-RAYS: X-rays of the left hip were reviewed. It shows advanced hip arthritis. He has got complete loss of his joint space. He has got osteophytes around the femoral head and acetabulum. Less sever e disease on his right side. He does have a lot of offset in his femoral neck. ASSESSMENT: A 77-year-old gentleman status post bilateral knee replacements with some underlying isc hemic heart disease with advanced left hip arthritis. He has failed conservative measures and would like to have his hip replaced. PLAN: We will proceed with left hip replacement. The risks and benefits of this procedure were expl ained to the patient include but not limited to DVT, PE, , infection, neurological injury, vascu lar injury, bleeding problem, pain, limited range of motion, stiffness, fracture, dislocation, etc. The patient understands and desires to proceed. Informed consent was obtained. He is planning to be discharged to home using [facility] program and his 's assistance . Job ID: [id number]
[2022-11-27] MEDS ORDERED: ACETAMINOPHEN 500 MG TAB PO SCH (06:00)
[2022-11-27] MEDS ORDERED: TRANEXAMIC ACID 1,000 MG **IV Pre-op IV SCH (06:00)
[2022-11-27] MEDS ORDERED: CeleBREX 200 MG CAP PO SCH (06:00)
[2022-11-27] MEDS ORDERED: LR 500ML BOLUS, THEN 15ML/HR IV SCH (06:00)
[2022-11-27] MEDS ORDERED: METOCLOPRAMIDE HCL 10 MG TABLET PO SCH (06:00)
[2022-11-27] MEDS ORDERED: LR 60ML/HR IV SCH (06:00)
[2022-11-27] MEDS ORDERED: FAMOTIDINE 20 MG TAB PO SCH (06:00)
[2022-11-27] MEDS ORDERED: ceFAZolin 2000MG 2,000 MG/15 ML SYR IV SCH (06:00)
[2022-11-27] MEDS ORDERED: MIDAZOLAM HCL 1 MG/ML 2ML VIAL ONE (06:13)
[2022-11-27] MEDS ORDERED: fentaNYL citrate PF 100 MCG/2 ML VIAL ONE (06:14)
[2022-11-27] MEDS ORDERED: ONDANSETRON INJ 2 MG/ML 2 ML VIAL ONE (06:15)
[2022-11-27] MEDS ORDERED: PROPOFOL IV EMULSION 10 MG/ML 20 ML VIAL IV ONE (06:15)
[2022-11-27] MEDS ORDERED: LIDOCAINE 2% MPF LOCAL 5 ML VIAL INFIL ONE (06:15)
[2022-11-27] MEDS ORDERED: ACETAMINOPHEN 1000 MG/100 ML IV IV ONE (06:28)
[2022-11-27] MEDS ORDERED: BUPIVACAINE 0.5 % 5 MG/1 ML PF 10ML VIAL ONE (06:31)
[2022-11-27] MEDS ORDERED: BUPIVACAINE/EPINEPHRINE 0.5% MPF 1:200,000 30 ML VIAL ONE (06:36)
--- NOTE | 2022-11-27 06:53 | History & Physical Bridge Note ---
Date of Service November 27, 2022 History & Physical Bridge Note I have examined the patient, reviewed the History & Physical and in the interval since the performance of the History & Physical I have noted the following changes of clinical significance: no changes noted
[2022-11-27] MEDS ORDERED: KETOROLAC 30 MG/ML VIAL ONE (07:22)
[2022-11-27] MEDS ORDERED: ePHEDrine sulfate 50 MG/ML SYR ONE (07:39)
[2022-11-27] MEDS ORDERED: DEXAMETHASONE SOD INJ 4 MG/ML VIAL ONE (08:02)
[2022-11-27] MEDS ORDERED: ePHEDrine sulfate 50 MG/ML AMP IV PRN (08:38)
[2022-11-27] MEDS ORDERED: HYDROmorphone INJ 2 MG/ML SYR/VIAL IV PRN (08:38)
[2022-11-27] MEDS ORDERED: ATROPINE SULFATE 0.1 MG/ML 10ML SYR IV PRN (08:38)
[2022-11-27] MEDS ORDERED: fentaNYL citrate PF 100 MCG/2 ML VIAL IV PRN (08:38)
--- NOTE | 2022-11-27 08:48 | Operative Report ---
PG Post Operative Report Pre & Post Diagnosis Operation Date: 11/27/22 07:00 Pre-Op Diagnosis: Left hip degenerative joint disease Post-Op Diagnosis: Left hip degenerative joint disease I identified the patient and participated in the time-out.: Yes Procedure Operation Date: 11/27/22 07:00 Actual Procedures p Left Total Hip Arthroplasty(Left) - Jose Servin MD Surgeon Jose Servin MD Piano Player Sravan Mackey PA-C Estimated Blood Loss 200 Findings Consistent with Post-Op Diagnosis Operative findings revealed advanced left hip DJD. Grade 4 [id number] disease of the femoral head and acetabulum. Large osteophytes around the acetabulum. Fairly stiff hip. Specimens Left femoral head sent for pathology Anesthesia Type Spinal MAC Complications none Disposition Accompanied Patient To Recovery: No Indications Patient 77-year-old fairly active gentleman said a several year history of increasing left hip pain discomfort is got significant worse over the past year. He failed conservative measures. X-rays show advanced left hip arthritis. Patient elected to with surgical treatment. Description of Procedure Operative implants consist of: 1 Biomet G7 size 60 mm acetabular shell. 2. 6.5 cancellous acetabular screws times 10/14/1929 5 mm length 1 to 30 mm length. 3. [place] eliminator. 4. Highly cross-linked polyethylene liner with vitamin E and Regiment with a 60 mm outer diameter, 40 mm inner diameter with a ingram placed inferior and posterior. 5. DePuy Corail size 11 KLA femoral stem. 6. +5/40 mm ceramic articular ball. Patient was taken the operating, identified, placed on the operating table supine position but all contact areas were properly padded. IV antibiotics tried by anesthesia team. A spinal anesthetic and been implemented holding area. Carreno catheter was placed in sterile fashion. The patient then placed in the right lateral decubitus position. An axillary roll was placed. Stulberg hip positioner was used for positioning. Left hip and leg were then prepped and draped in usual sterile fashion. A posterior lateral posterior left hip was then performed through a curvilinear incision centered over the greater trochanter. Sharp dissection was carried through subcutaneous tissues. We did enter into a bursal fluid collection outside the IT band and just inside the fascial layer. We incised through this. The IT band gluteal fascia then incised longitudinally in line with skin incision. The underlying greater bursa was excised. The piriformis and external rotators along with the posterior hip joint capsule were then released from the posterior aspect hip as a single layer. Great care was taken throughout the procedure protect the sciatic nerve at all times. Hip was internally rotated and dislocated. Femoral neck osteotomy cut was made with a Final Cut about 15 mm above the lesser trochanter. Femoral head was removed and sent for pathology. The femur was retracted anteriorly. Attention drawn the acetabulum. The acetabular labrum was excised. The pulmonary fat was excised. I did remove some the inferior osteophytes. I then reamed beginning with size 47 progressing up to 59. We did ream with a 60 reamer and then placed a 60 mm cup in about 40 degrees lateral opening and 20 degrees of anteversion. It was fixed with two 6.5 cancellous acetabular screws. Some anterior and inferior osteophytes were removed. A trial liner was placed. I elected to place a 40 liner to maximize his stability. Attention drawn the femur. The proximal femur was entered with cookie-cutter followed by canal finder. I then broached begin the size 8 and progressed up to 11. The 11 implant fit quite tightly and it did tend to push me into a little bit of retroversion. I was not able to adjust this due to the cortical thickness is up. I suspect that he had a little bit of a cortical defect distally which may have forced this to happen. We got excellent fit. We then trialed the hip and the +5 articular ball provide full stability in full extension and external rotation and flexion to 90 degrees internal Tatian over 50 degrees. I did elect to place a ingram on the liner to maximize his stability. Attention drawn towards placing the permanent components. All trial components were removed. An apex eliminator was placed. Highly cross-linked polyethylene liner with a ingram placed inferior and posterior was impacted in position. A DePuy KLA size 11 KLA femoral stem was impacted in position. A +5/40 mm ceramic articular ball was placed. Hip was located once again found to be stable. Attention drawn to closing. The wounds irrigated cosigns pulsatile lavage solution. I did inject locally with 60 cc of half percent Marcaine with epinephrine. Posterior capsule Rotators were then repaired as a single layer through drill holes in the posterior trochanter with #2 Tycron suture. The IT band gluteal fascia then closed in 1 PDS suture in a running fashion. I did use a cautery discomfort this bursa to try and get it to scar in. The subcutaneous tissues then closed with 2 layers the deep layer #1 Vicryl suture in a buried erupted fashion and the more superficial subcutaneous tissues with 2-0 Dexon suture in a buried interrupted fashion. Skin was closed skin alberto. Leg was then cleaned and dried and sterile dressing with Xeroform, 4 x 4's, ABD pad, foam tape was lev lied. Patient then transferred to the recovery room in stable condition. Patient tolerated procedure well no complications. Sravan Mackey, my physician community relations assistant, was present for the entire procedure. His assistance was essential and required for appropriate patient positioning, prepping and draping, surgical exposure, performing the technical details of the operation, placement the implants, closure of the wound, and placement of the sterile bandage. I attest to the content of the Intraoperative Record and any orders documented therein. Any exceptions are noted below.
--- NOTE | 2022-11-27 09:29 | Anesthesiology Progress Note ---
Date of Service November 27, 2022 Anesthesia Post Procedure Vital Signs Vital Signs: Temp Pulse Pulse Resp BP Pulse Ox O2 Del Method 11/27/22 08:55 67 13 98/56 L 97 Oxymask 11/27/22 09:05 36.4 C L 70 14 95/63 L 90 Nasal Cannula 11/27/22 08:45 71 13 97/57 L 98 Oxymask 11/27/22 08:37 37.0 C 81 14 91/58 L 95 Oxymask 11/27/22 05:57 36.9 C 87 18 128/83 96 O2 Flow Rate 11/27/22 08:55 2 11/27/22 09:05 2 11/27/22 08:45 3 11/27/22 08:37 5 11/27/22 05:57 Pain Intensity Generalized: Pain Intensity: 0 Transfer of Care Handoff Completed per policy Notes Mental Status: alert / awake / arousable and participated in evaluation Patient Amnestic to Procedure: Yes Nausea / Vomiting: adequately controlled Pain: adequately controlled Airway Patency, RR, SpO2: stable & adequate BP & HR: stable & adequate Hydration State: stable & adequate Neuraxial Anesthesia: was administered and sensory block is resolving Anesthetic Complications: no major complications apparent
[2022-11-27] MEDS ORDERED: HYDROmorphone INJ 0.5 MG/0.5 ML SYR IV PRN (09:43)
[2022-11-27] MEDS ORDERED: FLUTICASONE PROPIONATE NA SPR 16 GM BTL NAE PRN (09:43)
[2022-11-27] MEDS ORDERED: DOCUSATE SODIUM/SENNA 50/8.6MG TAB PO SCH (09:43)
[2022-11-27] MEDS ORDERED: MAGNESIUM HYDROXIDE SUSP 30 ML UDC PO PRN (09:43)
[2022-11-27] MEDS ORDERED: NALOXONE HCL 0.4 MG/1 ML VIAL/CARP IV PRN (09:43)
[2022-11-27] MEDS ORDERED: ONDANSETRON INJ 2 MG/ML 2 ML VIAL IV PRN (09:43)
[2022-11-27] MEDS ORDERED: METOCLOPRAMIDE HCL INJ 5 MG/ML 2 ML VIAL IV PRN (09:43)
[2022-11-27] MEDS ORDERED: ALUMINUM/MAGNESIUM SUSP 30 ML UDC PO PRN (09:43)
[2022-11-27] MEDS ORDERED: SILDENAFIL PO PRN (09:43)
[2022-11-27] MEDS ORDERED: TRIAMCINOLONE ACET 0.1% CR 15 GM TUBE TOP PRN (09:43)
[2022-11-27] MEDS ORDERED: CALCIUM MAGNESIUM PO SCH (09:43)
[2022-11-27] MEDS ORDERED: traMADol HCL 50 MG TABLET PO PRN (09:43)
[2022-11-27] MEDS ORDERED: bisacodyL 10 MG SUPP PR PRN (09:43)
--- NOTE | 2022-11-27 09:49 | XRay Report ---
XR hip 1V LT w pelvis CLINICAL HISTORY: Postoperative evaluation. COMPARISON: Pelvis and hip radiographs September 04, 2022. FINDINGS: Alignment of the total left hip arthroplasty is anatomic. There is no periprosthetic fract ure. There are no unexpected radiopaque foreign bodies. There are skin alberto. Right hip osteoarthri tis is incidentally noted. IMPRESSION: Expected findings following total left hip arthroplasty. ACT 112: Negative or not required by law. Electronically signed by: Jose Martin Fowler M.D. 11/27/2022 9:48 AM
[2022-11-27] MEDS ORDERED: ARTIFICIAL TEARS OP OINT 3.5 GM TUBE OP PRN (10:17)
[2022-11-27] MEDS: EZETIMIBE 10 MG TABLET PO SCH (11:04)
[2022-11-27] MEDS: OMEGA-3 (PURIFIED FISH OIL) 1 GM CAP PO SCH (11:05)
[2022-11-27] MEDS: TAMSULOSIN HCL 0.4 MG CAP PO SCH (11:05)
[2022-11-27] MEDS: AZELASTINE HCL 0.1% NASAL 200 SPRAYS/27,400 MCG BTL NAE SCH ×2 (11:05→21:47)
[2022-11-27] MEDS: DOCUSATE SODIUM 100 MG CAP PO SCH ×2 (11:06→21:46)
[2022-11-27] MEDS: DOXAZosin MESYLATE 4 MG TAB PO SCH (11:06)
[2022-11-27] MEDS: MULTIVITAMIN TAB PO SCH (11:07)
[2022-11-27] MEDS: KETOROLAC TROMETHAMINE 15 MG/ML VIAL IV SCH ×3 (11:07→21:48)
[2022-11-27] MEDS: ASPIRIN 81 MG ECTAB PO SCH ×3 (11:16→21:45)
[2022-11-27] MEDS: SODIUM CHLORIDE 0.9% 1000ML 1,000 ML IV SCH ×2 (11:16→21:25)
[2022-11-27] MEDS: ACETAMINOPHEN 500 MG TAB PO SCH ×2 (14:15→21:48)
[2022-11-27] MEDS: ceFAZolin 2000MG 2,000 MG/15 ML SYR IV SCH ×2 (14:20→21:49)
[2022-11-27] MEDS ORDERED: TRANEXAMIC ACID / 0.7% NACL 1,000 MG/100 ML BAG IV SCH (14:45)
[2022-11-27] MEDS: ASCORBIC ACID 500 MG TAB PO SCH (16:23)
[2022-11-27] MEDS ORDERED: SENNA 8.6 MG TAB PO SCH (21:00)
[2022-11-27] MEDS: METOPROLOL TARTRATE 25 MG TAB PO SCH (21:47)
[2022-11-28] MEDS: ACETAMINOPHEN 500 MG TAB PO SCH (05:17)
[2022-11-28] MEDS: KETOROLAC TROMETHAMINE 15 MG/ML VIAL IV SCH ×2 (05:17→10:29)
[2022-11-28 06:31] LABS: Basophils # (auto) 0.02 K/uL (0-0.2); Basophils % (auto) 0.3 %; Eosinophils # (auto) 0.03 K/uL (0-0.50); Eosinophils % (auto) 0.4 %; Hematocrit (blood only) 27.7 % (42.0-52.0); Hemoglobin 9.8 g/dl (14.0-18.0); Immature Granulocytes # (auto) 0.04 K/uL (0.01-0.20); Immature Granulocytes % (auto) 0.5 %; Lymphocytes # (auto) 0.81 K/uL (1.2-3.4); Lymphocytes % (auto) 10.2 %; Mean Corpuscular Hemoglobin 35.1 pg (25.0-34.0); Mean Corpuscular Hgb Conc 35.4 g/dL (32.0-36.0); Mean Corpuscular Volume 99.3 fL (80.0-100.0); Mean Platelet Volume 10.7 fL (9.4-12.4); Monocytes # (auto) 0.63 K/uL (0.11-0.59); Neutrophils # (auto) 6.38 K/uL (1.40-6.50); Neutrophils % (auto) 80.6 %; Nucleated RBC # (auto) 0.02 K/uL (0-0.12); Nucleated RBC % (auto) 0.3 %; Platelet Count 153 K/uL (130-400); RDW Coefficient of Variation 14.3 % (11.5-14.5); RDW Standard Deviation 51.3 fL (36.4-46.3); Red Blood Count 2.79 M/uL (4.70-6.10); White Blood Count 7.91 K/ul (4.8-10.8)
[2022-11-28 06:44] LABS: BUN Creatinine Ratio 17.9 (10-20); Calcium 7.8 mg/dl (8.5-10.1); Creatinine Clr Calc Pharmacy 92.2 ml/min; Est GFR (African American) 100.9 ml/min; Est GFR (Non-African American) 87.1 ml/min; Potassium 4.1 mmol/L (3.5-5.1)
[2022-11-28] MEDS ORDERED: dexAMETHasone 10 MG in SYRINGE 0 ML IV SCH (08:00)
--- NOTE | 2022-11-28 08:28 | Progress Notes ---
DATE OF SERVICE: 11/28/2022, SUBJECTIVE: A 77-year-old gentleman postoperative day 1 from a left hip replacement. He is doing we ll. Really not having any pain. He had a pretty good night, except he did not sleep much. No chest pain or shortness of breath. Not feeling dizzy or lightheaded. OBJECTIVE: VITAL SIGNS: Temperature 36.5. Vital signs are stable. GENERAL: Shows a pleasant, elderly male. He is sitting up in bed and looks comfortable this morning . LUNGS: Clear to auscultation. HEART: Regular rate and rhythm. ABDOMEN: Soft, nontender, nondistended. EXTREMITIES: Grossly neurovascularly intact except as follows: Examination of the left hip reveals his dressing to be clean, dry and intact. Thigh is soft and supple. Leg lengths are equal. He can dorsiflex and plantarflex his foot appropriately. NEUROLOGIC: He is neurologically intact. LABORATORY DATA: Hemoglobin 9.8. Hematocrit 27.7. Electrolytes are stable. ASSESSMENT: A 77-year-old gentleman, postoperative day 1 from left hip replacement, doing well. Ailyn n is controlled. Hip is located. He is neurologically intact. Mildly anemic, but asymptomatic. PLAN: 1. DVT prophylaxis includes thigh-high TEDs, SCDs, and aspirin twice a day. 2. PT/OT, weightbear as tolerated. Left total hip protocol. 3. Pain control, doing well with current pain regimen. 4. Disposition: Plan to discharge to home with some home health later today. Job ID: [id number]
[2022-11-28 08:43] VITALS: BP 104/70; PULSE 82; TEMP 97.5; O2SAT 94
[2022-11-28] MEDS: EZETIMIBE 10 MG TABLET PO SCH (08:43)
[2022-11-28] MEDS: TAMSULOSIN HCL 0.4 MG CAP PO SCH (08:43)
[2022-11-28] MEDS: ASPIRIN 81 MG ECTAB PO SCH (08:43)
[2022-11-28] MEDS: AZELASTINE HCL 0.1% NASAL 200 SPRAYS/27,400 MCG BTL NAE SCH (08:44)
[2022-11-28] MEDS: OMEGA-3 (PURIFIED FISH OIL) 1 GM CAP PO SCH (08:44)
[2022-11-28] MEDS: ASCORBIC ACID 500 MG TAB PO SCH (08:44)
[2022-11-28] MEDS: DOCUSATE SODIUM 100 MG CAP PO SCH (08:45)
[2022-11-28] MEDS: MULTIVITAMIN TAB PO SCH (08:45)
[2022-11-28] MEDS: METOPROLOL TARTRATE 25 MG TAB PO SCH (08:45)
[2022-11-28] MEDS: DOXAZosin MESYLATE 4 MG TAB PO SCH (08:48)
--- NOTE | 2022-12-02 18:53 | Discharge Summary ---
Date of Service December 02, 2022 Discharge Data Procedures Performed Operation Date: 11/27/22 07:00 Actual Procedures p Left Total Hip Arthroplasty(Left) - Jose Servin MD Hospital Course (1) S/P total left hip arthroplasty: This is a 77 year old patient admitted on 11/27/22 and underwent total hip arthroplasty. He tolerated the procedure well and there were no complications. Transferred to the PACU post op and later to the orthopedic floor for further care. He was given ancef for antibiotic prophylaxis. He was also given ROHAN stockings, SCDs, and aspirin for DVT prophylaxis. Hemoglobin, hematocrit, and vital signs were monitored during his hospital stay and remained stable. Did not require any blood transfusions. There were no complications during his hospital stay. By post op day #1 the patient was tolerating a regular diet, pain was reasonably controlled with oral pain medicine, and he was participating in physical therapy. On post op day #1 the patient was discharged home and set up with home health care. He was given printed discharge instructions including prescriptions for extra strength tylenol, aspirin, cefadroxil, ketorolac, zofran, senokot, flomax, and tramadol. Continue hip precautions. Continue physical therapy, weight bearing as tolerated. Continue ROHAN stockings. Follow up approximately 2 weeks post op or sooner if there are problems or concerns. Coding Level of Care Code None Diagnoses S/P total left hip arthroplasty Z96.642
== END 2022-11-28 12:00 | disposition home health service (06) ==
LOC: ASU 05:15 → 3E 05:15